=== PATIENT | male | born 1960 | race Caucasian/White ===

== ENCOUNTER 2018-12-08 08:30 | Inpatient (IN) ==
--- NOTE | 2018-12-03 08:49 | EKG Report ---
Test Performed on : 12/03/2018 08:28:44 AM Test Reason : PAT Blood Pressure : / mmHG Vent. Rate : 077 BPM Atrial Rate : 077 BPM P-R Int : 204 ms QRS Dur : 108 ms QT Int : 400 ms P-R-T Axes : 034 -05 061 degrees QTc Int : 452 ms Normal sinus rhythm. Normal ECG When compared with ECG of 12-MAR-2008 19:15, Non-specific change in ST segment in Anterior leads Confirmed by Ezra DANIELLE, Ezequiel Mason ([id number]) on 12/03/2018 3:53:08 PM
[2018-12-03 08:58] LABS: URINE SOURCE CLEAN CATCH
[2018-12-03 09:04] LABS: BILIRUBIN URINE NEGATIVE (NEGATIVE); BLOOD URINE NEGATIVE (NEGATIVE); COLOR YELLOW; GLUCOSE URINE NEGATIVE (NEGATIVE); KETONE URINE NEGATIVE (NEGATIVE); LEUKOCYTES URINE NEGATIVE (NEGATIVE); NITRITE URINE NEGATIVE (NEGATIVE); PH URINE 7.5; PROTEIN URINE 30 mg/dL (NEGATIVE); SP GRAVITY URINE 1.016; TURBIDITY URINE CLEAR (CLEAR); UROBILINOGEN URINE NORMAL (NORMAL)
[2018-12-03 09:05] LABS: BASO# 0.05 X1000 (0.0-0.2); BASO% 0.9 % (0.0-0.8); EOS# 0.06 X1000 (0.0-0.7); HEMATOCRIT 43.8 % (42.0-52.0); HEMOGLOBIN 15.3 g/dL (14.0-18.0); LYMPH# 1.07 X1000 (1.2-3.4); LYMPH% 18.4 % (20.5-51.1); MCH 34.5 PG (27-31); MCHC 34.9 g/dL (33-37); MCV 98.6 FL (81-99); MONO# 0.71 X1000 (0.11-0.59); MONO% 12.2 % (1.7-9.3); MPV 8.5 FL (7.4-10.4); NEUT# 3.92 X1000 (1.4-6.5); NEUT% 67.5 % (42.2-75.2); PLT 296 X1000 (130-400); RBC 4.44 XMIL (4.7-6.1); WBC 5.81 X1000 (4.8-10.8)
[2018-12-03 09:11] LABS: UR EPITHELIAL CELLS <10 /HPF (<10); URINE BACTERIA NEGATIVE /HPF; URINE RBC <10 /HPF (<10); URINE WBC <10 /HPF (<10)
[2018-12-03 09:29] LABS: HEMOGLOBIN A1C 5.3 % (4.8-6.0)
[2018-12-03 09:36] LABS: INR 0.86; PROTIME 12.4 Seconds (11.0-16.0)
[2018-12-03 09:41] LABS: AGAP 16; ALBUMIN 4.8 g/dL (3.5-5.0); BUN 10 mg/dL (8-22); CALCIUM 9.8 mg/dL (8.8-10.2); CHLORIDE 94 mmol/L (98-107); COSMO 274; CREATININE 0.9 mg/dL (0.7-1.2); ESTIMATED GFR > 60; GLUCOSE 110 mg/dL (70-104); POTASSIUM 3.6 mmol/L (3.5-5.1); SODIUM 137 mmol/L (136-145); TCO2 27 mmol/L (25-35)
[~2018-12-08 08:30] MED LIST: XYLOCAINE-MPF 2% ONE
[2018-12-08] MEDS ORDERED: DECADRON ONE (08:31)
[2018-12-08] MEDS ORDERED: ZOFRAN ONE (08:33)
[2018-12-08] MEDS ORDERED: FENTANYL ONE (08:34)
[2018-12-08] MEDS ORDERED: VERSED ONE (08:34)
[2018-12-08] MEDS ORDERED: LYRICA ONE (09:13)
[2018-12-08] MEDS ORDERED: LR 1,000 ML ONE (09:13)
[2018-12-08] MEDS ORDERED: CELEBREX ONE (09:13)
[2018-12-08] MEDS ORDERED: REGLAN ONE (09:13)
[2018-12-08] MEDS ORDERED: PEPCID ONE (09:13)
[2018-12-08] MEDS ORDERED: KEFZOL 1 GM/D5W 2 GM/100 ML IVPB ONE (09:13)
[2018-12-08] MEDS ORDERED: COLACE ONE (09:13)
[2018-12-08] MEDS ORDERED: DIPRIVAN 1% 500 MG/50 ML BOTTLE ONE (10:19)
[2018-12-08] MEDS ORDERED: MARCAINE 0.25% PF ONE (10:24)
[2018-12-08] MEDS ORDERED: SODIUM CHLORIDE 0.9% ONE (10:24)
[2018-12-08] MEDS ORDERED: DURAMORPH ONE (10:24)
[2018-12-08] MEDS ORDERED: VANCOMYCIN ONE (10:24)
[2018-12-08] MEDS ORDERED: CYKLOKAPRON 1,000 MG/NS 1,000 MG/100 ML IVPB ONE ×2 (10:24→10:25)
[2018-12-08] MEDS ORDERED: TORADOL ONE (10:24)
[2018-12-08] MEDS ORDERED: NEOSPORIN G.U. IRRIGANT ONE (10:25)
[2018-12-08] MEDS ORDERED: EXPAREL 1.3% ONE (10:25)
[2018-12-08] MEDS ORDERED: OFIRMEV 1000 MG/ISOTONIC SOLN 1,000 MG/100 ML BOTTLE ONE (11:26)
[2018-12-08] MEDS ORDERED: ROBINUL ONE (11:57)
[2018-12-08] MEDS ORDERED: EPHEDRINE ONE (11:59)
[2018-12-08] MEDS ORDERED: DILAUDID ONE (12:36)
[2018-12-08] MEDS ORDERED: SODIUM CHLORIDE 0.9% 10 ML ONE (12:37)
[2018-12-08] MEDS ORDERED: ZOFRAN IV PRN (14:30)
[2018-12-08] MEDS ORDERED: MILK OF MAGNESIA PO PRN (14:30)
[2018-12-08] MEDS ORDERED: ZOFRAN ODT PO PRN (14:30)
[2018-12-08] MEDS ORDERED: NS 1,000 ML IV SCH (14:30)
[2018-12-08] MEDS ORDERED: OXY IR PO PRN ×2 (14:30)
[2018-12-08] MEDS ORDERED: MORPHINE IV PRN ×3 (14:30)
[2018-12-08] MEDS ORDERED: NS 1,000 ML ONE (14:30)
--- NOTE | 2018-12-08 15:52 | OPERATIVE NOTE ---
PROCEDURE DATE: 12/08/2018 PREOPERATIVE DIAGNOSIS: Right knee degenerative joint disease. POSTOP DIAGNOSIS: Right knee degenerative joint disease. PROCEDURE: Right total knee arthroplasty using a [facility] size 7 femoral component, a size 8 tibial base plate, a 16 mm articular insert and a 38 mm patellar component. ANESTHESIA: General. SURGEON: Dr. Barrientos. LOG CHAIN WORKER: Kaila Morales PA-C, who was present throughout the case whose assistance was critical for exposure, placement implants and closure. Her assistance greatly reduced anesthesia and operative time and improved efficiency in the OR. Her assistance was necessary for successful completion of the case and for decision making. BLOOD LOSS: Minimal. TOURNIQUET TIME: Approximately an hour and half. DESCRIPTION OF PROCEDURE: The patient brought to the operative suite and placed in supine position. After successful administration of general anesthesia, a well-padded tourniquet was placed on right proximal thigh. Right lower extremity was prepped and draped in usual sterile fashion. Leg was exsanguinated. Tourniquet insufflated to 350 torr. Longitudinal incision made beginning superior pole patella extended distally to tibia tuberosity. He had a small skin lesion in line with the incision. This was removed in elliptical fashion. The superior edge of the lesion was marked with a suture and then this was sent to pathology. A medial arthrotomy was made. The medial capsule was elevated off the medial tibial plateau. The ACL, PCL, medial meniscus, lateral meniscus were excised. A drill was entered in the center of distal femur. Intramedullary guide was placed. Distal cutting block was pinned in place. Distal cut made with oscillating saw. Marginal osteophytes removed with rongeur. Attention was directed to the tibia. A drill was entered in the center of the tibia. Intramedullary guide was placed. Alignment was checked with drop flynn referencing off the anterior cortex tibia and the second ray of the foot and taking 4 mm off the low side the tibia which this case was medially. The tibial cutting block was pinned in place. The articular surface the tibial plateau was removed with oscillating saw. Extension gap was checked and found to be tight medially. A medial release was performed found to be balanced at 16 mm. Therefore we set the guide to 25 mm with the knee in flexion. Once the rotation was set and the femoral cutting block was pinned in place and the anterior cuts, chamfer cuts and posterior condylar cuts were made with the oscillating saw marginal osteophytes removed with rongeur. Box cutting block was pinned in place, box cut made box osteotome and oscillating saw, posterior condyle osteophytes removed the curved osteotome and rongeur. The attention was then directed to the tibia. The tibia sized to a size 8, a size 8 guide was used for the fin punch, the tibial trial, femoral trial and 16 mm articular insert were placed and taken through range of motion found have excellent alignment, balancing and range of motion. Attention was then directed to the patella. 9 mm of the articular surface of patella removed with oscillating saw. Patella sized to size 38. A size 38 guide was used drill peg holes. The lateral facet was chamfered 30 to 45 degrees. Patella trial was placed taken through range of motion found have excellent patella tracking. All trials were then removed. Knee was copiously irrigated and dried being certain all bone debris was removed. The tibial component, femoral component and patellar component were cemented in place, excess cement being removed with a [place]. Once the cement hardened, excess cement was again removed osteotome. Knee was again copiously irrigated and dried being certain all bone and cement debris removed. The trial articular insert was removed. Knee was copiously infiltrated with Exparel including posterior capsule, anterior capsule, medial and lateral collateral ligaments, intermuscular and subcutaneous tissue. A drain was placed exiting superior laterally and buried in the lateral gutter. The tourniquet was deflated. Hemostasis was obtained with electrocautery. The definitive 16 mm articular insert was locked into place. The knee was copiously irrigated with normal saline containing irrigant and Vashe irrigation. The medial arthrotomy was closed with #1 Vicryl. The skin edge approximated 2-0 Vicryl, skin was closed with Prineo and sterile dressing was applied. The patient tolerated the procedure well without complications. At the end the procedure all counts correct x2. Patient was transferred to the recovery room in stable condition. cc: Owen Barrientos MD
[2018-12-08] MEDS ORDERED: KEFZOL 2 GM/D5W 2 GM/50 ML IVPB IV SCH (17:00)
[2018-12-08 17:23] LABS: URINE SOURCE CATH
[2018-12-08 17:30] LABS: BILIRUBIN URINE NEGATIVE (NEGATIVE); BLOOD URINE NEGATIVE (NEGATIVE); COLOR YELLOW; GLUCOSE URINE NEGATIVE (NEGATIVE); KETONE URINE 10 mg/dL (NEGATIVE); LEUKOCYTES URINE NEGATIVE (NEGATIVE); NITRITE URINE NEGATIVE (NEGATIVE); PROTEIN URINE TRACE mg/dL (NEGATIVE); SP GRAVITY URINE 1.027; TURBIDITY URINE CLEAR (CLEAR); UROBILINOGEN URINE NORMAL (NORMAL)
[2018-12-08 17:32] LABS: UR EPITHELIAL CELLS <10 /HPF (<10); URINE BACTERIA NEGATIVE /HPF; URINE RBC <10 /HPF (<10); URINE WBC <10 /HPF (<10)
[2018-12-08] MEDS: ULTRAM PO SCH ×2 (18:54→21:29)
[2018-12-08] MEDS: KEFZOL 2 GM/D5W 2 GM/50 ML IVPB IV SCH (18:55)
[2018-12-08] MEDS ORDERED: ZOCOR PO SCH (21:00)
[2018-12-08] MEDS: LYRICA PO SCH (21:29)
[2018-12-08] MEDS: TYLENOL PO SCH (21:29)
[2018-12-08] MEDS: COLACE PO SCH (21:29)
[2018-12-08] MEDS: PERIDEX MT SCH (21:30)
[2018-12-09] MEDS: KEFZOL 2 GM/D5W 2 GM/50 ML IVPB IV SCH (03:46)
[2018-12-09] MEDS: TYLENOL PO SCH ×2 (03:46→08:31)
[2018-12-09] MEDS: ULTRAM PO SCH ×2 (03:46→08:33)
[2018-12-09 06:15] LABS: HEMATOCRIT 33.1 % (42.0-52.0); HEMOGLOBIN 11.2 g/dL (14.0-18.0)
[2018-12-09 06:31] LABS: AGAP 11; BUN 11 mg/dL (8-22); CALCIUM 8.3 mg/dL (8.8-10.2); CHLORIDE 100 mmol/L (98-107); COSMO 278; CREATININE 0.9 mg/dL (0.7-1.2); ESTIMATED GFR > 60; GLUCOSE 178 mg/dL (70-104); SODIUM 137 mmol/L (136-145); TCO2 26 mmol/L (25-35)
[2018-12-09 07:20] VITALS: BP 121/74
[2018-12-09] MEDS: PERIDEX MT SCH (08:31)
[2018-12-09] MEDS: COLACE PO SCH (08:32)
[2018-12-09] MEDS: LYRICA PO SCH (08:33)
[2018-12-09] MEDS ORDERED: MIRAPEX PO SCH (09:00)
[2018-12-09] MEDS ORDERED: PEPCID PO SCH (09:00)
[2018-12-09] MEDS ORDERED: NORVASC PO SCH (09:00)
[2018-12-09] MEDS ORDERED: MOBIC PO SCH (09:00)
[2018-12-09] MEDS ORDERED: DECADRON IV ONE (09:00)
[2018-12-09] MEDS ORDERED: ZYRTEC PO SCH (09:00)
[2018-12-09] MEDS ORDERED: ASPIRIN PO SCH (09:00)
[2018-12-09] MEDS ORDERED: GLUCOSAMINE 500 MG/CHONDROITIN 400 MG PO SCH (09:00)
--- NOTE | 2018-12-09 14:49 | DISCHARGE SUMMARY ---
ADMISSION DATE: 12/08/2018 DISCHARGE DATE: 12/09/2018 DISCHARGE DIAGNOSIS: Right knee degenerative joint disease status post right total knee arthroplasty. DISCHARGE MEDICATIONS: See discharge med list. DISPOSITION: The patient discharged home with outpatient physical therapy to see rehab. Instructed to return for any signs or symptoms of infection or deep venous thrombosis. Instructed to return to see Dr. Barrientos next . HOSPITAL COURSE: On the day of admission, patient underwent a right total knee arthroplasty. His postoperative course was unremarkable. At discharge, he is afebrile, tolerating a regular diet, ambulating well with physical therapy. His wound is clean, dry, intact without sign of infection. He is discharged home in stable condition with instructions to follow up as described above. cc: Owen Barrientos MD
== END 2018-12-09 11:56 | disposition home or self-care (01) | DRG 470 ==
LOC: 4N 08:30 → PAT 08:30 → OBSVTOIN 13:39
PROVIDERS: ADMIT Orthopaedic Surgery; ATTEND Orthopaedic Surgery
CPT/HCPCS: 80048; 81001; 82040; 83036; 85014; 85018; 85025; 85610; 85730; 86850; 86900; 86901; 88305; 88311; 88313; 93005; 93010; 94799; 97110; 97162; A9270; C9290; J0131; J0690; J1100; J1170; J1885; J2250; J2274; J2275; J2405; J3010; J3370; J7030; J7120; Q9974; S0020